=== PATIENT | male | born 1945 | race African-American/Black ===

== ENCOUNTER 2016-10-12 12:50 | Inpatient (IN) | payer MEDICARE, MEDICAID ==
[~2016-10-12] VITALS: Ht 177.8 cm; Wt 57.0 kg
[~2016-10-12 12:50] MED LIST: ACETIC ACID2 % AU; ADALAT CC30 MG PO; ALEVE220 MG OR; AMOXICILLIN500 MG OR; AMOXICILLIN500 MG PO; CHLORTHALID25 MG PO; DEBROX6.5 % AU; LISINOP/HCTZ1 TA1 PO; LISINOP/HCTZ1 TAB PO; MICONAZOLE23 EX; NO HOME MEDS; TRAMADOL HCL50 MG OR; VENTOLIN HFA IN; [UNRECOGNIZED DRUG - OTHER]
[2016-10-12 13:48] LABS: HEMATOCRIT 41.8 % (39.0-50.0); HEMOGLOBIN 13.7 g/dl (14.0-18.0); IMMATURE GRANULOCYTES 0.8 % (0.0-1.0); MEAN CELL VOLUME 96.5 fL CALC (80.0-100.0); MEAN CORPUSCULAR HGB 31.6 pG CALC (26.0-32.0); MEAN CORPUSCULAR HGB CONC 32.8 g/L CALC (32.0-36.0); NEUT# 6.47 thou/uL (1.82-7.42); RED BLOOD COUNT 4.33 mill/uL (4.70-6.10); RED CELL DISTRI WIDTH 14.1 % (11.5-15.5)
[2016-10-12 13:56] LABS: ALKALINE PHOSPHATASE 62 u/l (38-126); ANION GAP 19 (6-22 (CALC)); BUN 13 mg/dL (8-23); BUN/CREATININE RATIO 12 (12-20 (CALC)); CALCIUM 9.2 mg/dL (8.4-10.2); CARBON DIOXIDE 19 mmol/l (22-30); CHLORIDE 105 mmol/l (95-108); CREATININE 1.1 mg/dL (0.7-1.3); GFR > 60 ML/MIN (>=60 (CALC)); GFR FOR AFR.AMER. > 60 ML/MIN (>=60 (CALC)); GLUCOSE 87 mg/dL (82-115); SGOT/AST 29 u/l (19-48); SGPT/ALT 11 u/l (11-66); SODIUM 140 mmol/l (137-146); TOTAL PROTEIN 7.5 g/dL (6.3-8.2)
[2016-10-12 13:59] LABS: PROTHROMBIN TIME 10.5 SECONDS (9.0-12.5)
[2016-10-12 14:08] LABS: MYOGLOBIN 74 ng/mL (0 - 121)
[2016-10-12 20:16] LABS: HEMATOCRIT 44.6 % (39.0-50.0); HEMOGLOBIN 14.8 g/dl (14.0-18.0); IMMATURE GRANULOCYTES 0.6 % (0.0-1.0); MEAN CELL VOLUME 97.6 fL CALC (80.0-100.0); MEAN CORPUSCULAR HGB 32.4 pG CALC (26.0-32.0); MEAN CORPUSCULAR HGB CONC 33.2 g/L CALC (32.0-36.0); NEUT# 7.16 thou/uL (1.82-7.42); RED BLOOD COUNT 4.57 mill/uL (4.70-6.10); RED CELL DISTRI WIDTH 14.3 % (11.5-15.5)
[2016-10-12 20:35] LABS: ANION GAP 19 (6-22 (CALC)); BUN 14 mg/dL (8-23); BUN/CREATININE RATIO 16 (12-20 (CALC)); CARBON DIOXIDE 14 mmol/l (22-30); CHLORIDE 110 mmol/l (95-108); CREATININE 0.8 mg/dL (0.7-1.3); GFR > 60 ML/MIN (>=60 (CALC)); GFR FOR AFR.AMER. > 60 ML/MIN (>=60 (CALC)); GLUCOSE 116 mg/dL (82-115); POTASSIUM 3.9 mmol/l (3.5-5.1); SODIUM 139 mmol/l (137-146)
[2016-10-12 21:04] LABS: URINE BILIRUBIN - DIPSTICK NEGATIVE (NEGATIVE); URINE BLOOD DIPSTICK TRACE-INTACT (NEGATIVE); URINE CLARITY CLEAR; URINE COLOR YELLOW; URINE GLUCOSE - DIPSTICK NEGATIVE (NEGATIVE); URINE KETONE NEGATIVE (NEGATIVE); URINE LEUK ESTERASE NEGATIVE (Negative); URINE NITRITE - DIPSTICK NEGATIVE (Negative); URINE PROTEIN - DIPSTICK TRACE mg/dL (NEG-TRACE); URINE SPECIFIC GRAVITY >=1.030
[2016-10-12 21:11] LABS: COCAINE NEGATIVE (NEGATIVE); METHADONE NEGATIVE (NEGATIVE); TETRAHYDROCANNABIONOL NEGATIVE (NEGATIVE)
[2016-10-12 21:12] LABS: BARBITURATES NEGATIVE (NEGATIVE); OXCYCODONE NEGATIVE (NEGATIVE); TRICYLIC ANTIDEPRESSANTS NEGATIVE (NEGATIVE)
[2016-10-12 21:35] VITALS: BP 194/78
[2016-10-12 22:00] VITALS: BP 190/96
[2016-10-12 22:15] VITALS: BP 167/90
[2016-10-12 22:30] VITALS: BP 162/94
[2016-10-12 22:45] VITALS: BP 157/89
[2016-10-12 22:50] LABS: BUN 13 mg/dL (8-23); BUN/CREATININE RATIO 16 (12-20 (CALC)); CALCIUM 8.5 mg/dL (8.4-10.2); CARBON DIOXIDE 14 mmol/l (22-30); CHLORIDE 110 mmol/l (95-108); CREATININE 0.9 mg/dL (0.7-1.3); GFR > 60 ML/MIN (>=60 (CALC)); GFR FOR AFR.AMER. > 60 ML/MIN (>=60 (CALC)); GLUCOSE 114 mg/dL (82-115); SODIUM 140 mmol/l (137-146)
[2016-10-12 22:52] LABS: ANION GAP 20 (6-22 (CALC))
[2016-10-12 23:00] VITALS: BP 150/87
[2016-10-13] VITALS (21 sets, daily range): BP systolic 91–140; BP diastolic 58–85
[2016-10-13 04:59] LABS: HEMATOCRIT 38.6 % (39.0-50.0); HEMOGLOBIN 12.7 g/dl (14.0-18.0); IMMATURE GRANULOCYTES 0.4 % (0.0-1.0); MEAN CELL VOLUME 97.2 fL CALC (80.0-100.0); MEAN CORPUSCULAR HGB CONC 32.9 g/L CALC (32.0-36.0); NEUT# 7.93 thou/uL (1.82-7.42); RED BLOOD COUNT 3.97 mill/uL (4.70-6.10)
[2016-10-13 05:17] LABS: ANION GAP 14 (6-22 (CALC)); BUN 12 mg/dL (8-23); BUN/CREATININE RATIO 18 (12-20 (CALC)); CALCIUM 7.9 mg/dL (8.4-10.2); CARBON DIOXIDE 16 mmol/l (22-30); CHLORIDE 112 mmol/l (95-108); CREATININE 0.7 mg/dL (0.7-1.3); GFR > 60 ML/MIN (>=60 (CALC)); GFR FOR AFR.AMER. > 60 ML/MIN (>=60 (CALC)); GLUCOSE 118 mg/dL (82-115); POTASSIUM 4.8 mmol/l (3.5-5.1); SODIUM 137 mmol/l (137-146)
[2016-10-13] MEDS ORDERED: AMLODIPINE5 MG PO (10:45)
[2016-10-14] VITALS (13 sets, daily range): BP systolic 96–164; BP diastolic 60–96
[2016-10-14 11:48] LABS: HEMATOCRIT 35.2 % (39.0-50.0); HEMOGLOBIN 11.4 g/dl (14.0-18.0); IMMATURE GRANULOCYTES 0.6 % (0.0-1.0); MEAN CELL VOLUME 98.6 fL CALC (80.0-100.0); MEAN CORPUSCULAR HGB 31.9 pG CALC (26.0-32.0); MEAN CORPUSCULAR HGB CONC 32.4 g/L CALC (32.0-36.0); NEUT# 9.42 thou/uL (1.82-7.42); RED BLOOD COUNT 3.57 mill/uL (4.70-6.10); RED CELL DISTRI WIDTH 14.6 % (11.5-15.5)
[2016-10-14 12:07] LABS: ANION GAP 13 (6-22 (CALC)); BUN 9 mg/dL (8-23); BUN/CREATININE RATIO 14 (12-20 (CALC)); CALCIUM 8.5 mg/dL (8.4-10.2); CARBON DIOXIDE 19 mmol/l (22-30); CHLORIDE 114 mmol/l (95-108); CREATININE 0.6 mg/dL (0.7-1.3); GFR > 60 ML/MIN (>=60 (CALC)); GFR FOR AFR.AMER. > 60 ML/MIN (>=60 (CALC)); GLUCOSE 106 mg/dL (82-115); POTASSIUM 3.9 mmol/l (3.5-5.1); SODIUM 142 mmol/l (137-146)
== END 2016-10-14 13:45 | disposition short-term general hospital (02) | DRG 916 ==
LOC: ED 12:50 → ED-I 13:37 → ED 17:25 → ICU 17:26
PROVIDERS: Emergency Medicine; Internal Medicine; ADMIT Internal Medicine; ATTEND Internal Medicine
PROC: 0HQ1XZZ Repair Face Skin, External Approach (ICD-10-PCS; principal; 2016-10-12)
PROC: 5A1945Z Respiratory Ventilation, 24-96 Consecutive Hours (ICD-10-PCS; 2016-10-12)
PROC: 0BH17EZ Insertion of Endotracheal Airway into Trachea, Via Natural or Artificial Opening (ICD-10-PCS; 2016-10-12)
DX: T78.3XXA Angioneurotic edema, initial encounter (principal); J44.1 Chronic obstructive pulmonary disease with (acute) exacerbation; E87.2 Acidosis; T38.0X5A Adverse effect of glucocorticoids and synthetic analogues, initial encounter; T37.8X5A Adverse effect of other specified systemic anti-infectives and antiparasitics, initial encounter; I10 Essential (primary) hypertension; S01.81XA Laceration without foreign body of other part of head, initial encounter; M19.90 Unspecified osteoarthritis, unspecified site; F17.210 Nicotine dependence, cigarettes, uncomplicated; F10.10 Alcohol abuse, uncomplicated; W19.XXXA Unspecified fall, initial encounter; Y90.4 Blood alcohol level of 80-99 mg/100 ml; Y92.009 Unspecified place in unspecified non-institutional (private) residence as the place of occurrence of the external cause; Y92.238 Other place in hospital as the place of occurrence of the external cause
CPT/HCPCS: J1956; S0164

== ENCOUNTER 2017-04-02 07:23 | Day surgery (SDC) | payer MEDICARE, MEDICAID ==
[~2017-04-02] VITALS: Ht 177.8 cm; Wt 57.6 kg
[~2017-04-02 07:23] MED LIST changes: +AMLODIPINE5 MG PO
[2017-04-02 11:43] VITALS: BP 141/74
== END 2017-04-02 10:40 | disposition home or self-care (01) ==
LOC: ENDO 07:23 → ORM 08:45 → ENDO 09:10 → ORM 09:10 → ENDO 10:40
PROVIDERS: ATTEND Surgery
PROC: 0DB18ZX Excision of Upper Esophagus, Via Natural or Artificial Opening Endoscopic, Diagnostic (ICD-10-PCS; principal; 2017-04-02)
DX: R13.10 Dysphagia, unspecified (principal); K20.9 Esophagitis, unspecified; K22.9 Disease of esophagus, unspecified; J31.2 Chronic pharyngitis; F17.200 Nicotine dependence, unspecified, uncomplicated; I10 Essential (primary) hypertension